=== PATIENT | male | born 1965 | race Caucasian/White ===

== ENCOUNTER 2018-01-15 19:25 | Emergency (ER) | payer BC, OTHER ==
[~2018-01-15] VITALS: Ht 182.9 cm; Wt 80.6 kg
[2018-01-15 19:37] VITALS: TEMP 36.6; Ht 182.9 cm; Wt 80.6 kg
[2018-01-15] MEDS ORDERED: LORAZEPAM 2 MG/ML 1 ML VIAL IV STA (20:04)
[2018-01-15] MEDS ORDERED: METOCLOPRAMIDE HCL INJ 5 MG/ML 2 ML VIAL IV STA (20:04)
[2018-01-15] MEDS ORDERED: OMEP40CA41 PO (20:38)
[2018-01-15] MEDS ORDERED: PANTOprazole SOD 40 MG TAB PO STA (20:39)
[2018-01-15 20:55] VITALS: BP 129/86; PULSE 63; O2SAT 99
--- NOTE | 2018-01-15 22:49 | EMERGENCY ROOM VISIT NOTE ---
History Report prepared by Iliana: Sivakumar Pickett Under the Supervision of: Dr. Po Ruth M.D. First contact with patient: 19:55 Chief Complaint: CHOKING Stated Complaint: TROUBLE BREATHING History of Present Illness The patient is a 52 year old male who presents to the Emergency Room with complaints of a constant inability to swallow beginning 2 hours ago. The patient states he had a bite of steak for dinner, and it did not go down all the way into his stomach. He reports it feels like it got stuck at the middle of his throat. The patient notes he tried to self-induce vomiting, but he was not able to vomit. He states he occasionally has trouble breathing, and he cannot swallow his mucus. There is some nausea present. The patient reports he has a history of trouble swallowing. He notes he had an endoscopy that was negative except for moderate acid reflux. Pt denies LOC, headache, fevers, chills, diaphoresis, visual changes, neck pain, chest pain, vomiting, abdominal pain, back pain, melena, hematochezia, urinary symptoms, numbness, weakness, lymphadenopathy, rash, or other complaints. Source of History: patient Onset: 2 hours ago Position: throat Quality: other (inability to swallow) Timing: constant Note: Associated symptoms: trouble swallowing his mucus and occasional trouble breathing Review of Systems See HPI for pertinent positives and negatives. A total of ten systems were reviewed and were otherwise negative. Past Medical & Surgical Medical Problems: (1) No Known Active Medical Problems Family History Cancer Social History Smoking Status: Never Smoker Smokeless Tobacco Use: No Alcohol Use: none Marital Status: Housing Status: lives with significant other Occupation Status: employed Current/Historical Medications Scheduled Omeprazole (Prilosec), 40 MG PO BID Allergies Coded Allergies: Penicillin G (Verified Allergy, Mild, RASH, 10/20/13) Physical Exam Vital Signs Date Time Temp Pulse Resp B/P (MAP) Pulse Ox O2 Delivery O2 Flow Rate FiO2 01/15/18 20:55 63 18 129/86 99 01/15/18 20:16 97 Room Air 01/15/18 19:37 36.6 66 18 124/84 99 Room Air Physical Exam GENERAL: Awake, alert, very uncomfortable-appearing, in moderate distress. Actively spitting his own saliva into his bucket. HENT: Normocephalic, atraumatic. Oropharynx unremarkable. EYES: Normal conjunctiva. Sclera non-icteric. NECK: Supple. No nuchal rigidity. FROM. No masses. RESPIRATORY: Clear to auscultation. No wheezes. No rales. Normal respiratory effort. CARDIAC: Normal rate. Normal rhythm. No murmurs. No rubs. Extremities warm and well perfused. Pulses equal. No JVD. GI: Soft, non-distended. No tenderness to palpation. No rebound or guarding. No masses. RECTAL: Deferred. MUSCULOSKELETAL: Atraumatic. Chest examination reveals no tenderness. The back is symmetrical on inspection without obvious abnormality. There is no CVA tenderness to palpation. No joint edema. LOWER EXTREMITIES: Calves are equal size bilaterally and non-tender. No edema. No discoloration. NEURO: Normal sensorium. No sensory or motor deficits noted. SKIN: No rash or jaundice noted. Medical Decision & Procedures Medications Administered Medications (Trade) Dose Ordered Sig/Luke Route Start Time Stop Time Status Last Admin Dose Admin Pantoprazole Sodium (Protonix Tab) 40 mg NOW STAT PO 01/15/18 20:39 01/15/18 20:40 DC 01/15/18 20:47 40 MG ED Course 1957: The patient was evaluated in room B10. A complete history and physical exam was performed. 2005: I [facility] the patient's case [facility] She will evaluate the patient for further management and care. 2012: The patient had an IV placed, and the food bolus passed. 2013: I updated Dr. Rendon. She will follow-up with the patient as an outpatient for an endoscopy. 2031: I reevaluated the patient. He is feeling better and drank an entire can of isela dorie without symptoms. Discussed results and discharge instructions: he verbalized understanding and agreement. The patient is ready for discharge. 2038: Ordered Protonix 40mg PO Medical Decision Patient presented to the emergency department noting a choking sensation and unable to swallow any liquids or even his own saliva. Differential includes esophageal food impaction, esophageal stricture, esophageal spasm, esophageal rupture, as well as others. The patient had an IV established. Consultation was made with gastroenterology. I discussed the case. The patient would be prepped for endoscopy emergently. During his IV placement the patient felt relief of his symptoms. He was reevaluated. He felt back to normal. He was able to drink a whole can of isela dorie without difficulty. It appears that his esophageal food impaction has resolved. The patient was given Protonix and prescribed Prilosec as requested by gastroenterology. He will be followed up in the outpatient setting for endoscopy. Patient feels comfortable with this plan. I gave my usual and customary discussion regarding this issue. By the evaluation outlined above other emergent etiologies such as those listed in the differential, as well as others, were deemed relatively unlikely. The patient was educated about the findings as listed above. All questions were answered and the patient was pleased with the treatment. Return instructions were outlined and the patient was discharged in stable condition. The patient was referred to gastroenterology for follow-up for a recheck of the current condition. Medication Reconcilliation Current Medication List: was personally reviewed by me Blood Pressure Screening Patient's blood pressure: Normal blood pressure Blood pressure disposition: Did not require urgent referral Consults Time Called: 2003 Consulting Physician: Tawanda Faulkner Returned Call: 2005 I discussed the patient's case with Tawanda Faulkner. She will evaluate the patient for further management and care. 2013: I updated Dr. Rendon. She will follow-up with the patient as an outpatient for an endoscopy. Impression Primary Impression: Food impaction of esophagus Scribe Attestation The scribe's documentation has been prepared under my direction and personally reviewed by me in its entirety. I confirm that the note above accurately reflects all work, treatment, procedures, and medical decision making performed by me. Departure Information Dispostion Home / Self-Care Prescriptions Omeprazole (PRILOSEC) 40 Mg Cap 40 MG PO BID for 30 Days, #60 CAP Prov: Po Ruth MD 01/15/18 Referrals Danilo Alegria M.D. Forms HOME CARE DOCUMENTATION FORM, IMPORTANT VISIT INFORMATION, WORK / SCHOOL INSTRUCTIONS Patient Instructions My [facility] Additional Instructions Prilosec 40 mg twice daily until directed otherwise by gastroenterology Call gastroenterology tomorrow, for a follow-up appointment. The number is listed below. Return to the ER for worsening swallowing problems, chest pain, difficulty breathing, fevers, vomiting, worsening of your condition, or as needed.
--- NOTE | 2018-01-16 10:57 | Pharmacy Progress Note ---
ED Pharmacist Progress Note Date of Service: January 16, 2018. Received call from [facility] regarding a prescription for omeprazole [address] Ruth patient's insurance will only pay for 40 mg once daily without a prior auth. Discussed with Dr. Ruth who authorized change to 40 mg daily. Called [facility] pharmacy which closed at 6. Left message on physician line authorizing change to 40 mg daily. Left call back number for any questions.
== END 2018-01-15 20:56 | disposition home or self-care (01) ==
LOC: C.EDB 19:26
DX: T18.108A Unspecified foreign body in esophagus causing other injury, initial encounter (principal); X58.XXXA Exposure to other specified factors, initial encounter; Z88.0 Allergy status to penicillin